=== PATIENT | male | born 1950 | race African-American/Black ===

== ENCOUNTER 2016-08-06 08:52 | Outpatient (CLI) | payer MEDICARE | END 2016-08-06 08:53 | LOC: NAVSJIPCSP 08:52 | PROVIDERS: ATTEND Internal Medicine | DX: E78.5 Hyperlipidemia, unspecified (principal); Z79.899 Other long term (current) drug therapy | CPT/HCPCS: 36415; 80061 ==

== ENCOUNTER 2016-08-26 08:46 | Outpatient (CLI) | payer MEDICARE ==
--- NOTE | 2016-08-26 10:31 | ULT ---
ADOMINAL AORTIC ULTRASOUND: Date: 08-26-16 History: Screening examination for abdominal aortic aneurysm. Technique: Multiplanar grayscale sonographic imaging of the abdominal aorta obtained. Abdominal ao rta is assessed with color flow and spectral analysis. FINDINGS: Imaged portions of the abdominal aorta demonstrate patency with a normal arterial waveform. The proximal abdominal aorta measures up to 2.8 cm, the mid abdominal aorta measures up to 2.7 cm, a nd the distal abdominal aorta measures up to 2.5 cm. The abdominal aorta is thus ectatic, especiall y proximally. There is no definitive evidence for abdominal aortic aneurysm, however, as defined by abdominal aorta diameter 3 cm or greater. IMPRESSION: Proximal abdominal aorta demonstrate ectasia. No measurements greater or equal to 3 cm at this time . POS: [facility]
== END 2016-08-26 08:47 | disposition home or self-care (01) ==
LOC: NAV ULT 08:46
PROVIDERS: ATTEND Internal Medicine
DX: Z13.6 Encounter for screening for cardiovascular disorders (principal)
CPT/HCPCS: 76775

== ENCOUNTER 2016-11-18 03:48 | Outpatient (CLI) | payer MEDICARE ==
[2016-11-18 04:26] LABS: Cardiac Risk 3.2 (Less than 4.5)
== END 2016-11-18 03:49 | disposition home or self-care (01) ==
LOC: NAV LAB 03:48
PROVIDERS: ATTEND Internal Medicine
DX: E78.5 Hyperlipidemia, unspecified (principal); Z79.899 Other long term (current) drug therapy
CPT/HCPCS: 36415; 80061

== ENCOUNTER 2017-03-04 09:20 | Outpatient (CLI) | payer MEDICARE ==
[2017-03-04 12:17] LABS: Cardiac Risk 3.8 (Less than 4.5)
== END 2017-03-04 09:21 | disposition home or self-care (01) ==
LOC: NAVSJIPCSP 09:20
PROVIDERS: ATTEND Internal Medicine
DX: E78.5 Hyperlipidemia, unspecified (principal); Z79.899 Other long term (current) drug therapy
CPT/HCPCS: 36415; 80061

== ENCOUNTER 2017-06-23 16:44 | Outpatient (CLI) | payer MEDICARE ==
--- NOTE | 2017-06-23 19:25 | RAD ---
TWO VIEWS CHEST 06/23/17 PROVIDED CLINICAL HISTORY: Upper respiratory infection. FINDINGS: Comparison 09/07/15. The cardiomediastinal silhouette is unchanged in appearance. The lungs are hyperinflated and hyperluc ent compatible with chronic obstructive disease. No focal consolidation, pleural fluid, or pneumothor ax apparent. Degenerative changes are seen involving the spine. IMPRESSION: Chronic obstructive change without evidence for an acute cardiopulmonary process. POS: H
== END 2017-06-23 16:45 | disposition home or self-care (01) ==
LOC: NAV RAD 16:44
DX: J06.9 Acute upper respiratory infection, unspecified (principal)
CPT/HCPCS: 71020

== ENCOUNTER 2019-01-21 08:19 | Emergency (ER) | payer MEDICARE ==
[2019-01-21] MEDS ORDERED: Proparacaine 0.5% Opth 15 ML BOT ONE (08:33)
[2019-01-21] MEDS ORDERED: Fluorescein Opthalmic Strip ONE (08:33)
== END 2019-01-21 12:19 | disposition home or self-care (01) ==
LOC: NAV ERS 08:19
DX: T15.02XA Foreign body in cornea, left eye, initial encounter (principal); E78.5 Hyperlipidemia, unspecified; I10 Essential (primary) hypertension; J45.909 Unspecified asthma, uncomplicated; F17.210 Nicotine dependence, cigarettes, uncomplicated; Z79.899 Other long term (current) drug therapy; Z79.51 Long term (current) use of inhaled steroids; W22.8XXA Striking against or struck by other objects, initial encounter
CPT/HCPCS: 99283

== ENCOUNTER 2019-02-05 22:21 | Emergency (ER) | payer MEDICARE ==
[2019-02-05] MEDS ORDERED: Bacitracin 1 PK ONE (22:47)
[2019-02-05] MEDS ORDERED: Silver Sulfadiazine 1% Cream 50 GM JAR ONE (22:47)
[2019-02-05] MEDS ORDERED: Adacel (T-DAP) 0.5 ML SYRINGE ONE (23:13)
== END 2019-02-05 23:20 | disposition home or self-care (01) ==
LOC: NAV ERS 22:21
DX: T20.212A Burn of second degree of left ear [any part, except ear drum], initial encounter (principal); T23.222A Burn of second degree of single left finger (nail) except thumb, initial encounter; T20.14XA Burn of first degree of nose (septum), initial encounter; T23.162A Burn of first degree of back of left hand, initial encounter; T23.161A Burn of first degree of back of right hand, initial encounter; E78.5 Hyperlipidemia, unspecified; I10 Essential (primary) hypertension; F17.210 Nicotine dependence, cigarettes, uncomplicated; J45.909 Unspecified asthma, uncomplicated; Z79.899 Other long term (current) drug therapy; Z79.51 Long term (current) use of inhaled steroids; X08.8XXA Exposure to other specified smoke, fire and flames, initial encounter
CPT/HCPCS: 16020; 90471; 90715